=== PATIENT | male | born 1945 | race Caucasian/White ===

== ENCOUNTER 2021-11-23 06:09 | Outpatient (CLI) | payer MEDICARE | END 2021-11-23 06:10 | disposition critical access hospital (66) | LOC: EMS 06:09 | DX: R47.81 Slurred speech (principal); R29.810 Facial weakness; R53.1 Weakness | CPT/HCPCS: A0425; A0427 ==

== ENCOUNTER 2021-11-23 06:24 | Emergency (ER) | payer MEDICARE ==
[2021-11-23 06:51] LABS: BASOPHILS % (AUTO) 0.8 %; EOSINOPHILS # (AUTO) 0.1 10^3/uL (0.0-0.7); EOSINOPHILS % (AUTO) 2.2 %; HCT - HEMATOCRIT 39.9 % (42.0-52.0); LYMPHOCYTES # (AUTO) 1.1 10^3/uL (1.5-3.5); LYMPHOCYTES % (AUTO) 22.5 %; MEAN CORPUSCULAR HEMOGLOBIN 30.7 pg (27.0-31.0); MEAN CORPUSCULAR HGB CONC 32.6 g/dL (32.0-36.0); MEAN CORPUSCULAR VOLUME 94.1 fL (80.0-94.0); MEAN PLATELET VOLUME 9.6 fL (7.4-11.4); MONOCYTES # (AUTO) 0.5 10^3/uL (0.0-1.0); MONOCYTES % (AUTO) 9.6 %; NEUTROPHILS # (AUTO) 3.2 10^3/uL (1.5-6.6); NEUTROPHILS % (AUTO) 64.5 %; PLT - PLATELET COUNT 224 10^3/uL (130-450); RED BLOOD COUNT 4.24 10^6/uL (4.70-6.10); RED CELL DISTRIBUTION WIDTH 12.6 % (12.0-15.0)
[2021-11-23 07:04] LABS: ALBUMIN 3.8 g/dL (3.2-5.5); ALBUMIN/GLOBULIN RATIO 1.4 (1.0-2.2); BILIRUBIN,TOTAL 0.3 mg/dL (0.2-1.0); CALCIUM 8.6 mg/dL (8.5-10.3); CREATININE 0.7 mg/dL (0.6-1.2); POTASSIUM 3.5 mmol/L (3.5-5.0); TOTAL PROTEIN 6.5 g/dL (6.7-8.2)
[2021-11-23] MEDS ORDERED: ALTEPLASE IV STA ×3 (07:07→07:13)
[2021-11-23] MEDS ORDERED: WATER FOR INJECTION STERILE IV STA ×3 (07:07→07:13)
[2021-11-23 07:12] LABS: INR 1.2 (0.8-1.2); PT - PROTHROMBIN TIME 13.2 secs (9.9-12.6)
--- NOTE | 2021-11-23 07:13 | ED Physician Documentation ---
ED Addendum - Addendum Addendum: 11/23/21 07:10 Took over at shift change from Dr. Sevilla. At the time of shift change this gentleman who is on no meds was being evaluated by the telestroke neurologist. Time of onset 05 30. He appears to have a devastating right MCA stroke with left-sided deficits. May be some potentially Hyperacute right MCA sign on Noncon head CT. Telestroke neurologist recommended going ahead with tPA. is not currently at the bedside but is reportedly on the way. I called the home phone number and someone gave me her cell which was [phone]. I called this number and it went to [place]. I did leave a message for an urgent call back from her. Telestroke neurologist recommended starting tPA given the circumstance without formal consent given the devastating nature is nature of the stroke. Patient is slightly altered and does not seem to be consentable. tPA is being mixed by the pharmacist. He will go back for angiography study. 11/23/21 07:38 Given the above the decision was made by myself and the telestroke neurologist to go ahead and give the tPA bolus which was given at 7:26 AM. still not at bedside. Patient currently back at CT for angiography studies. 11/23/21 07:54 now at the bedside. We discussed the tPA and she was agreeable. He has returned from angiography. On exam at this point he is flaccid in the left upper extremity but can lift the left lower extremity. He states his name is "Sandeep." He states the month is October and the year is 2021. 11/23/21 07:56 Took call from telestroke neurologist and he confirms a right M1 MCA thrombus and is arranging for transfer to [facility]. 11/23/21 08:23 CTA head and neck demonstrates normal neck vasculature, right M1 MCA occlusion. 11/23/21 08:28 Took call from telestroke neurologist at this time. He is going to be accepted at [facility] for intervention, the accepting physician will call me back.
[2021-11-23 07:19] LABS: PARTIAL THROMBOPLASTIN TIME 18.2 secs (24.9-33.3)
[2021-11-23] MEDS ORDERED: IOPAMIDOL-300 50 ML VIAL ONE (07:26)
--- NOTE | 2021-11-23 07:35 | CT Report ---
PROCEDURE: Head W/O Stroke Protocol INDICATIONS: left facial droop, LUE/LLE flaccid weakness TECHNIQUE: Noncontrast 4.5 mm thick angled axial sections acquired from the foramen magnum to the vertex, with c oronal reformats. For radiation dose reduction, the following was used: automated exposure control, adjustment of mA and/or kV according to patient size. COMPARISON: FINDINGS: Image quality: Excellent. CSF spaces: Basal cisterns are patent. No extra-axial fluid collections. Ventricles are normal in size and shape. Brain: Increased density noted in the M1 segment right middle cerebral artery. No midline shift. No intracranial masses or hemorrhage. Huitron-white matter interface is normal. Skull and face: Calvarium and visualized facial bones are intact, without suspicious lesions. Sinuses: Visualized sinuses and mastoids are clear. IMPRESSION: Acute thrombus involving the M1 segment of the right middle cervical artery. No acute intracranial hemorrhage. This study fulfills neurological imaging criteria for inclusion or exclusion of acute stroke therapie s based on available published neurological imaging guidelines. Reviewed by: Leena Jules MD, PhD on 11/23/2021 7:34 AM PDT Approved by: Leena Jules MD, PhD on 11/23/2021 7:34 AM PDT Station ID: [id number]
--- NOTE | 2021-11-23 07:36 | XRAY Report ---
PROCEDURE: Chest 1 View X-Ray INDICATIONS: CVA TECHNIQUE: One view of the chest was acquired. COMPARISON: None FINDINGS: Surgical changes and devices: None. Lungs and pleura: No pleural effusions or pneumothorax. Lungs are clear. Mediastinum: Mediastinal contours appear normal. Heart size is normal. Bones and chest wall: No suspicious bony lesions. Overlying soft tissues appear unremarkable. IMPRESSION: No acute cardiopulmonary disease process. Reviewed by: Leena Jules MD, PhD on 11/23/2021 7:34 AM PDT Approved by: Leena Jules MD, PhD on 11/23/2021 7:34 AM PDT Station ID: [id number]
[2021-11-23] MEDS ORDERED: IOPAMIDOL-300 50 ML VIAL IVP ONE (07:47)
--- NOTE | 2021-11-23 07:59 | ED Physician Documentation ---
PD HPI FOCAL NEURO - Stated complaint Stated Complaint: POSS STROKE - Chief complaint Chief Complaint: Trauma Hd/Nk - History obtained from History obtained from: Patient, EMS - Additional information Additional information: Seen initially by Dr. Sevilla prior to shift change. Briefly this is a fairly healthy gentleman not anticoagulated who had abrupt onset of symptoms between 510 and 530 this morning with paralysis on the left. No recent surgeries. No headache. No anticoagulants. At the time of my initial evaluation he is being evaluated by telestroke neurology. Review of Systems Unable to obtain: AMS (Slow to answer questions) PD PAST MEDICAL HISTORY - Past Medical History Past Medical History: No GI: None, Other - Past Surgical History Past Surgical History: No General:  - Present Medications Home Medications: Ambulatory Orders Medication Instructions Recorded Confirmed No Known Home Medications 03/15/15 11/23/21 - Allergies Allergies/Adverse Reactions: Allergies Allergy/AdvReac Type Severity Reaction Status Date / Time No Known Drug Allergies Allergy Verified 11/23/21 07:45 - Social History Does the pt smoke?: No Smoking Status: Never smoker Does the pt drink ETOH?: No Does the pt have substance abuse?: No - Immunizations Immunizations are current?: Yes - POLST Patient has POLST: No PD ED PE NORMAL - Vitals Vital signs reviewed: Yes - General General: Other (He is alert and oriented to person and place but not time, preferring to keep his eyes closed.) - HEENT HEENT: PERRL, EOMI - Neck Neck: Supple, no meningeal sign, No bony TTP - Cardiac Cardiac: RRR, No murmur - Respiratory Respiratory: No respiratory distress, Clear bilaterally - Abdomen Abdomen: Non tender - Back Back: No CVA TTP, No spinal TTP - Derm Derm: Normal color, Warm and dry - Extremities Extremities: No edema, No calf tenderness / cord - Neuro Eye Opening: To Voice Motor: Obeys Commands Verbal: Confused GCS Score: 13 - Psych Psych: Normal mood, Normal affect NIHSS - Time Time: 07:50 - Level of Consciousness Level of consciousness: (1) Not alert, but arousable by minor stimulation to obey, or answer LOC Questions: (1) Answers one Q correctly LOC Commands: (0) Performs both correctly - Gaze Best Gaze: (0) Normal - Visual Visual: (2) Complete Hemianopia - Facial Palsy Facial Palsy: (2) Partial paralysis - Motor Arms (both separate) Motor Arm (right): (0) No drift Motor Arm (left): (4) No movement - Motor Legs (both separate) Motor Leg (right): (0) No drift Motor Leg (left): (1) Drift - Limb Ataxia Limb Ataxia: (0) Absent - Sensory Sensory: (1) Gwac-nr-gefdqepr loss - Best Language Best Language: (0) No aphasia - Dysarthria Dysarthria: (0) Normal - Extinction and Inattention (formally neg Extinction and inattention: (1) Visual,tactile,auditory,spatial, or personal inattention - Total Score/Results Total Score/Result: 13 Results - Vitals Vitals: Vital Signs - 24 hr 11/23/21 11/23/21 11/23/21 06:30 06:45 07:03 Temperature 36.4 C L 36.9 C Heart Rate 73 69 67 Respiratory 21 14 17 Rate Blood Pressure 113/71 114/73 118/70 O2 Saturation 98 98 99 11/23/21 11/23/21 07:30 07:45 Temperature Heart Rate 73 72 Respiratory 13 15 Rate Blood Pressure 107/68 106/65 O2 Saturation 100 98 Oxygen O2 Source Room air - EKG (time done) 0705 Rate: Rate (enter#) (68) Rhythm: NSR Loving: Normal Intervals: Normal ME QRS: Normal Ischemia: Normal ST segments Computer interpretation: Agree with computer - Labs Labs: Laboratory Tests 11/23/21 11/23/21 11/23/21 06:44 06:44 06:44 WBC 5.0 RBC 4.24 L Hgb 13.0 L Hct 39.9 L MCV 94.1 H MCH 30.7 MCHC 32.6 RDW 12.6 Plt Count 224 MPV 9.6 Neut # (Auto) 3.2 Lymph # (Auto) 1.1 L [place] # (Auto) 0.5 Eos # (Auto) 0.1 Baso # (Auto) 0.0 Absolute Nucleated RBC 0.00 Nucleated RBC % 0.0 PT 13.2 H INR 1.2 APTT 18.2 L Sodium 136 Potassium 3.5 Chloride 105 Carbon Dioxide 25 Anion Gap 6.0 BUN 21 H Creatinine 0.7 Estimated GFR (MDRD) 110 Glucose 117 H Calcium 8.6 Total Bilirubin 0.3 AST 22 ALT 17 Alkaline Phosphatase 74 Total Protein 6.5 L Albumin 3.8 Globulin 2.7 Albumin/Globulin Ratio 1.4 Lipase 31 PD MEDICAL DECISION MAKING - ED course ED course: See addendum for case details is available by phone [phone] - Critical Care Time(min): 45 Time Includes: Direct patient care, Review records, Reassess patient, Document care, Coordinate care, Medical consult, Family consult for tx dec Data interpretation: Labs, Pulse ox Procedures included in critical care time: Peripheral IV Procedures excluded from critical care time: EKG Departure - Departure Disposition: 02 Transfer Acute Care Hosp Clinical Impression: Acute right MCA stroke Condition: Critical Forms: Activity restrictions
--- NOTE | 2021-11-23 07:59 | CT Report ---
PROCEDURE: ANGIO HEAD W/WO INDICATIONS: CVA, likely R MCA CONTRAST: IV CONTRAST: Isovue 300 ml: 80 PO CONTRAST: *NO PO CONTRAST TECHNIQUE: Precontrast 4.5 mm thick angled axial sections acquired from the foramen magnum to the vertex. Afte r the administration of intravenous contrast, 1 mm thick sections acquired through the [place] of [place] is. Postcontrast 4.5 mm thick sections then re-acquired from the foramen magnum to the vertex. 3-di mensional umscamj-bxptdikyo-rfuzyfpmfj (MIP) and/or volume rendering reformats were acquired of the c entral intracranial vasculature. For radiation dose reduction, the following was used: automated ex posure control, adjustment of mA and/or kV according to patient size. COMPARISON: CT head 11/23/2021 FINDINGS: Image quality: Severely degraded by patient motion artifact. Anterior circulation: Intracranial internal carotid arteries are grossly normal in size and flow. T he flow within the paired anterior cerebral arteries is grossly normal and symmetric. Absence of flow noted in the M1 segment of the right middle cerebral artery compatible presence of thrombus. Flow wi thin the left middle cerebral artery is grossly normal. The anterior communicating artery is seen. N o definite aneurysms are seen. Posterior circulation: Visualized portions of the vertebral arteries demonstrate grossly normal carmel zayra, and join to form a normal grossly appearing basilar artery. Flow within the posterior cerebral arteries is normal and symmetric. No definite aneurysms are seen. Dural sinuses demonstrate normal postcontrast enhancement. CSF spaces: Ventricles are normal in size and shape. Basal cisterns are patent. No extra-axial flu id collections. Brain: No midline shift. No intracranial bleeds or masses. Huitron-white matter interface appears int act. Skull and face: Calvarium and facial bones appear intact, without suspicious lesions. Sinuses: Visualized sinuses and mastoids are clear. IMPRESSION: 1. Image quality severely degraded by patient motion artifact. 2. Thrombus in the M1 segment of the right middle cerebral artery. Reviewed by: Leena Jules MD, PhD on 11/23/2021 7:58 AM PDT Approved by: Leena Jules MD, PhD on 11/23/2021 7:58 AM PDT Station ID: [id number]
--- NOTE | 2021-11-23 08:03 | CT Report ---
PROCEDURE: ANGIO NECK W INDICATIONS: CVA, likely R MCA CONTRAST: IV CONTRAST: Isovue 300 ml: 80 PO CONTRAST: *NO PO CONTRAST TECHNIQUE: After the administration of intravenous contrast, 1.5 mm axial sections acquired from the aortic arch to the [place] of [place]. Coronal 3-D maximum intensity projection (MIP) and/or volume rendering ref ormats were then performed. For radiation dose reduction, the following was used: automated exposur e control, adjustment of mA and/or kV according to patient size. COMPARISON: None. FINDINGS: Image quality: Severely degraded by patient motion artifact resulting in suboptimal visualization of the distal cervical segments of the carotid arteries and vertebral arteries as well as the intracrani al cerebral vasculature.. Carotid system: The great vessels demonstrate a conventional anatomy as they arise from the aortic a rch. The origins of the common carotid arteries appear patent. The common carotid arteries demonstr ate normal calibers and courses. The bifurcation regions appear normal bilaterally. The internal ca rotid arteries demonstrate normal caliber and course. Posterior circulation: The origins of the vertebral arteries appear patent. The more superior porti ons of the vertebral arteries demonstrate normal course and caliber. They join to form a normal appe aring basilar artery. Soft tissues: Visualized neck soft tissues demonstrate no suspicious abnormalities. The thyroid is normal in size and there are no incidental findings. Bones: No suspicious bony lesions. Spine degenerative disc disease and facet arthropathy are noted. Visualized cervical spine appears normally aligned. IMPRESSION: 1. Image quality degraded by patient motion artifact. 2. No large vessel occlusion, vascular stenosis or vascular dissection identified in the well-visuali zed portions of the neck vasculature. The estimate of stenosis included in the report of the imaging study was calculated using the NASCET method Reviewed by: Leena Jules MD, PhD on 11/23/2021 8:01 AM PDT Approved by: Leena Jules MD, PhD on 11/23/2021 8:01 AM PDT Station ID: [id number]
[2021-11-23] MEDS ORDERED: SODIUM CHLORIDE 0.9% 1,000 ML IV STA (08:28)
[2021-11-23 09:16] VITALS: BP 112/59
== END 2021-11-23 09:14 | disposition short-term general hospital (02) ==
LOC: EDUNIT# → ED 06:24
DX: I63.511 Cerebral infarction due to unspecified occlusion or stenosis of right middle cerebral artery (principal); R29.713 NIHSS score 13; Z20.822 Contact with and (suspected) exposure to COVID-19
CPT/HCPCS: 36415; 37195; 70450; 70496; 70498; 71045; 80053; 83690; 85025; 85610; 85730; 87635; 93005; 99285; 99291; J2997; Q9967

== ENCOUNTER 2021-12-07 14:58 | Outpatient (CLI) | payer MEDICARE ==
--- NOTE | 2021-12-07 16:26 | CT Report ---
PROCEDURE: HEAD WO INDICATIONS: CVA TECHNIQUE: Noncontrast 4.5 mm thick angled axial sections acquired from the foramen magnum to the vertex. For r adiation dose reduction, the following was used: automated exposure control, adjustment of mA and/or kV according to patient size. COMPARISON: CT head 11/23/2021. CT angiogram head and neck 11/23/2021. FINDINGS: Image quality: Excellent. CSF spaces: Basal cisterns are patent. No extra-axial fluid collections. Ventricles are normal in size and shape. Brain: Confluent hypodensity involving the right deep huitron matter, right frontal lobe, right middle lobe and right temporal lobe compatible with subacute infarct in a right middle cerebral artery distribution. No midline shift. No intracranial masses or hemorrhage. Huitron-white matter interface is normal. Skull and face: Calvarium and visualized facial bones are intact, without suspicious lesions. Sinuses: Small mucous retention cysts noted in the maxillary sinuses. The mastoids are clear. IMPRESSION: Subacute right MCA distribution infarct. No acute intracranial hemorrhage. Reviewed by: Leena Jules MD, PhD on 12/07/2021 4:24 PM PDT Approved by: Leena Jules MD, PhD on 12/07/2021 4:24 PM PDT Station ID: [id number]
== END 2021-12-07 14:59 | disposition home or self-care (01) ==
LOC: DI 14:58
PROVIDERS: ATTEND Student in an Organized Health Care Education/Training Program
DX: I63.411 Cerebral infarction due to embolism of right middle cerebral artery (principal)

== ENCOUNTER 2022-03-29 14:34 | Outpatient (CLI) | payer MEDICARE | END 2022-03-29 14:35 | disposition home or self-care (01) | LOC: SC 14:34 | PROVIDERS: ATTEND Nurse Practitioner Family | DX: G47.33 Obstructive sleep apnea (adult) (pediatric) (principal) | CPT/HCPCS: G0399 ×2; 95806 ==

== ENCOUNTER 2022-04-23 12:22 | Outpatient (CLI) | payer MEDICARE ==
[2022-04-23 12:02] VITALS: BP 88/53
--- NOTE | 2022-04-23 12:02 | SLEEP CARE CONSULTATION ---
Information from patient questionnaire entered by Mindy Rincon. I have reviewed and concur with the information entered by Mindy Rincon. This document represents the service I personally performed and the decisions made by , Meredith Epperson ARNP. History of Present Illness Service Date and Time: 04/23/2022 1140 Accompanied by: Spouse Initial [place] Sleepiness Scale score: 4 (01/31/2022) Current [place] Sleepiness Scale score: 5 (04/23/2022) Additional HPI information: WHITNEY ALLEN returns via video telehealth visit for follow up with spouse and results of the recently performed home sleep study. Patient sleep study did show positive sleep disordered breathing but due to extensive pulse oximetry signal loss is a nondiagnostic study. It is recommended that patient repeat study in the sleep lab for better quality results. Sleep Study - Results Type of Sleep Study: Home sleep study (COMPLETED 03-30-2022) Prior sleep studies: No Polysomnography/Home Sleep Study results: Physician Impression: The quality of the study is poor due to extensive loss of pulse oximetry signal. The length of the study is adequate (> 240 minutes). Please also see the tabulated and graphic data. 1. Obstructive Sleep Apnea-Hypopnea (ICD-10 G47.33), mild, with an AHI of 10.7/hr and ban SaO2 of 91%. During the study, the patient had 20 apneas (20 obstructive, 0 central, 0 mixed) and 3 hypopneas. The longest episode lasted 112.5 seconds. The respiratory events occurred almost exclusively during supine sleep (supine AHI was 16.7 and non-supine, 2.22). Recommendation: Due to the extensive data loss, this home sleep apnea test (HSAT) is non- diagnostic. An inlaboratory polysomnography should be performed to further evaluate sleep-disordered breathing. Allergies and Home Medications Drug allergies reviewed: Yes (NKDA) Home medication list reviewed: Yes (Imaquimod) Review of Systems Review of systems same as previous: No (Basal cell carcinoma) Physical Exam Vital signs obtained and entered by: VIA PHONE Blood Pressure: 88/53 (PER PT ) Height: 5 ft 9 in Weight: 163 lb (pt reported) Body Mass Index: 24.0 BMI Classification: Normal Impression and Plan 1. Suspected Obstructive Sleep Apnea-Hypopnea Syndrome, as suggested by a history of loud and irregular snoring, unrefreshed sleep, and history of strokes, DVT and more recently diagnosed with Atrial fibrillation. Patient had significant loss of pulse oximetry signal with his HST resulting in poor quality sleep study. He states they always have issues getting pulse oximetry to work on his fingers. He does not want to try an in lab sleep study and would prefer trying the HST again. He is also wanting to wait until his cardioversion by his form coverer of his Afib before he does another study. I advised that we try to get this done when able to confirm the diagnosis and to assess severity. I obtained agreement to proceed. The pathophysiology of obstructive sleep apnea-hypopnea syndrome was discussed with the patient and health risks of cardiovascular and cerebrovascular disease if not treated. Risks of drowsy driving discussed in detail and patient advised to avoid long distance driving and to date puller at the first sign of drowsiness. Patient agreed to plan. * Schedule polysomnography * Avoid alcohol, sedative and muscle relaxant around bedtime. * Review instructions provided by trained office staff on how to prepare for the sleep study. * Return for follow-up after sleep study completed. Visit Type: Telehealth Video Video Type: Doximity Patient Location: Home Other Participants: Spouse/Significant Other Location of Provider: Office Patient agrees and consents to this telehealth visit type: Yes Patient agrees to have their insurance billed: Yes Time Spent with Patient (minutes): 22 Provider Statement: I spent 100% of the Telehealth Video Call with the patient with greater than 50% spent counseling the patient and coordination of care.
== END 2022-04-23 12:23 | disposition home or self-care (01) ==
LOC: SC 12:22
PROVIDERS: ATTEND Nurse Practitioner Family
DX: G47.8 Other sleep disorders (principal); R06.83 Snoring

== ENCOUNTER 2022-05-17 13:17 | Outpatient (CLI) | payer MEDICARE | END 2022-05-17 13:18 | disposition home or self-care (01) | LOC: SC 13:17 | PROVIDERS: ATTEND Nurse Practitioner Family | DX: Z53.9 Procedure and treatment not carried out, unspecified reason (principal) ==

== ENCOUNTER 2022-05-20 08:30 | Outpatient (CLI) | payer MEDICARE | END 2022-05-20 08:31 | disposition home or self-care (01) | LOC: SC 08:30 | PROVIDERS: ATTEND Nurse Practitioner Family | DX: R09.02 Hypoxemia (principal); R00.0 Tachycardia, unspecified | CPT/HCPCS: G0399 ×2; 95806 ==

== ENCOUNTER 2022-05-23 13:31 | Outpatient (CLI) | payer MEDICARE ==
--- NOTE | 2022-05-23 13:23 | SLEEP CARE CONSULTATION ---
Information from patient questionnaire entered by Shandra Baird MA. I have reviewed and concur with the information entered by Shandra Baird MA. This document represents the service I personally performed and the decisions made by , Meredith Epperson ARNP. History of Present Illness Service Date and Time: 05/23/2022 1300 Accompanied by: Spouse Initial [place] Sleepiness Scale score: 4 (01/31/2022) Current [place] Sleepiness Scale score: 3 Additional HPI information: WHITNEY ALLEN returns via video telehealth visit with spouse for follow up and results of the recently performed home sleep study. The patient was informed of the following findings: No significant sleep disordered breathing with an average AHI of 0.3 and ban oxygen saturation of 82%. The length of the study was [id number]. Tachycardia with maximum recorded heart rate of 152 BPM and wide heart rate fluctuations. Sleep Study - Results Type of Sleep Study: Home sleep study (COMPLETED 03-30-2022) Prior sleep studies: No Polysomnography/Home Sleep Study results: Physician Impression: The quality of the study is good. The length of the study is [id number] (< 240 minutes). Please also see the tabulated and graphic data. 1. No significant sleep disordered breathing, with an AHI of 0.3/hr and ban SaO2 of 82%. During the study, the patient had 0 apneas (0 obstructive, 0 central, 0 mixed) and 1 hypopnea. The longest episode lasted 51.0 seconds. The patient slept adequately in supine position (supine AHI was 0.0 and non-supine, 0.44). 2. Hypoxemia (ICD-10 R09.02), minimal, with the lowest oxygen saturation of 82 % and 0.8 minutes with SaO2 under 90%. Baseline oxygen saturation was normal (Average oxygen saturation was 96%). 3. Tachycardia (ICD R00.0), with maximum heart rate of 152 beats per minute and wide heart rate fluctuations. Recommend further evaluation. Allergies and Home Medications Drug allergies reviewed: Yes (NKDA) Home medication list reviewed: Yes (no changes) Review of Systems Review of systems same as previous: No (cardioversion for Afib) Physical Exam Vital signs obtained and entered by: MODESTO Height: 5 ft 9 in Weight: 160 lb (pt reported) Body Mass Index: 23.6 BMI Classification: Normal Impression and Plan 1. Tachycardia, with maximum heart rate of 152 beats per minute and wide heart rate fluctuations. Patient has a history of atrial fibrillation. It is recommended that he see his managed care specialist for further evaluation. 2. Suspected Obstructive Sleep Apnea-Hypopnea Syndrome. He has had 2 HSTs with various problems and I talked at length about getting a more accurate measurement by having him do the study in the sleep lab. I recommend proceeding to polysomnography to confirm the diagnosis and to assess severity. Patient would like to discuss it with his and will call back with their decision on whether he will come in for PSG in the sleep lab. * Patient to call with decision on repeat PSG in sleep lab * Patient to follow up with his managed care specialist on elevated heart rate with wide heart rate fluctuations Follow up with: Special Weapons And Tactics Officer (for tachycardia/wide heart rate fluctuations) Visit Type: Telehealth Video Video Type: Doximity Patient Location: Home Other Participants: Spouse/Significant Other Location of Provider: Office Patient agrees and consents to this telehealth visit type: Yes Patient agrees to have their insurance billed: Yes Time Spent with Patient (minutes): 20 Provider Statement: I spent 100% of the Telehealth Video Call with the patient with greater than 50% spent counseling the patient and coordination of care.
== END 2022-05-23 13:32 | disposition home or self-care (01) ==
LOC: SC 13:31
PROVIDERS: ATTEND Nurse Practitioner Family
DX: R00.0 Tachycardia, unspecified (principal)

== ENCOUNTER 2022-07-08 19:26 | Outpatient (CLI) | payer MEDICARE | END 2022-07-08 19:27 | disposition home or self-care (01) | LOC: SC 19:26 | PROVIDERS: ATTEND Nurse Practitioner Family | DX: G47.33 Obstructive sleep apnea (adult) (pediatric) (principal); G47.61 Periodic limb movement disorder; I48.91 Unspecified atrial fibrillation; G47.52 REM sleep behavior disorder | CPT/HCPCS: 95810 ==

== ENCOUNTER 2022-07-11 08:40 | Outpatient (CLI) | payer MEDICARE ==
[2022-07-11 09:03] VITALS: BP 95/65
--- NOTE | 2022-07-11 09:03 | SLEEP CARE CONSULTATION ---
Information from patient questionnaire entered by Linda Rincon. I have reviewed and concur with the information entered by Linda Rincon. This document represents the service I personally performed and the decisions made by , Meredith Epperson ARNP. History of Present Illness Service Date and Time: 07/11/2022 0840 Accompanied by: Spouse Initial [place] Sleepiness Scale score: 4 (01/31/2022) Current [place] Sleepiness Scale score: 3 (07/11/22) Additional HPI information: WHITNEY ALLEN returns via video telehealth visit with spouse for follow up and results of the recently performed polysomnography. I explained the pathophysiology behind obstructive sleep apnea. We then spent quite a bit of time discussing different treatment options. For mild obstructive sleep apnea, surgery and oral appliance are alternatives to nasal CPAP therapy but in moderate or severe cases, nasal CPAP is the most effective and reliable treatment. Because apnea is primarily in supine position, then positional management therapy could be effective. Methods discussed such as positioning with pillows, using a T-shirt with tennis balls in the back, or commercially available positional products to prevent supine sleep. I reviewed the impact of weight changes on sleep apnea and strongly recommended losing weight. Patient was cautioned about risks of drowsy driving until sleepiness symptoms resolve. Patient denies drowsy driving. Sleep Study - Results Type of Sleep Study: Polysomnography (COMPLETED 07/08/22) Prior sleep studies: No Allergies and Home Medications Drug allergies reviewed: Yes (NKDA) Home medication list reviewed: Yes (no changes) Review of Systems Review of systems same as previous: Yes (no changes) Physical Exam Vital signs obtained and entered by: VIA PHONE LINDA Donald MA Blood Pressure: 95/65 (PER PT) Height: 5 ft 8 in (PER PT) Weight: 165 lb (PER PT) Body Mass Index: 25.0 BMI Classification: Overweight Impression and Plan 1. Obstructive Sleep Apnea-Hypopnea Syndrome, mild, with lowest oxygen saturation of 87%. Obviously this is the cause of the patients symptoms of unrefreshed sleep, and excessive daytime sleepiness. Positive pressure therapy could benefit cerebrovascular disease (stroke) and atrial fibrillation. The patient chose an oral appliance to treat their apnea. A follow up will be made to see if appliance has reduced symptoms. If so, another polysomnography will be ordered with use of the oral appliance to check efficacy in reducing apnea. Until patient is able to use the oral appliance, positional therapy is advised to avoid supine sleep with pillow positioning or one of the commercial products because apnea is more severe supine. 2. Periodic limb movement, mild, that did not fragment patients sleep. Periodic limb movement of sleep (PLMS) is characterized by episodes of repetitive limb movements that occur during sleep and usually involve the lower limbs. The etiology is unknown. Caffeine can aggravate PLMS and should be avoided. Sleep hygiene methods can also improve sleep as well as lifestyle changes such as regular exercise. Patient was advised that no treatment is needed at this time. If symptoms increase, then further evaluation is indicated. 3. Atrial fibrillation with controlled heart rate. Patient with a history of atrial fibrillation and recent cardioversion. 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 4. REM parasomnia. Patient was noted to move arm during REM sleep. I discussed with patient that further evaluation is as needed if becomes problem. * Oral appliance * Avoid supine sleep until using oral appliance. * The patient is again cautioned about driving until sleepiness completely resolves. * Return one month after oral appliance obtained. I will assess response to therapy at that time. Counseling Topics: Sleeping position Visit Type: Telehealth Video Video Type: Doximity Patient Location: Home Other Participants: Spouse/Significant Other Location of Provider: Office Patient agrees and consents to this telehealth visit type: Yes Patient agrees to have their insurance billed: Yes Time Spent with Patient (minutes): 22 Provider Statement: I spent 100% of the Telehealth Video Call with the patient with greater than 50% spent counseling the patient and coordination of care.
== END 2022-07-11 08:41 | disposition home or self-care (01) ==
LOC: SC 08:40
PROVIDERS: ATTEND Nurse Practitioner Family
DX: G47.33 Obstructive sleep apnea (adult) (pediatric) (principal); G47.61 Periodic limb movement disorder; I48.91 Unspecified atrial fibrillation; G47.52 REM sleep behavior disorder

== ENCOUNTER 2023-10-28 15:03 | Outpatient (CLI) | payer MEDICARE ==
--- NOTE | 2023-10-28 14:56 | SLEEP CARE CONSULTATION ---
Information from patient questionnaire entered by Mindy Rincon. I have reviewed and concur with the information entered by Mindy Rincon. This document represents the service I personally performed and the decisions made by me, Juvencio Epperson ARNP. History of Present Illness Service Date and Time: 10/28/2023 1440 Previous diagnosis: Mild, Obstructive Sleep Apnea-Hypopnea Syndrome AHI: 5.2 (07/08/22) Reason for follow up: six month (F/U ORAL APPLIANCE) Accompanied by: Spouse (Deedee) Equipment type: Dental Appliance Prior sleep studies: No Type of Sleep Study: Polysomnography (COMPLETED 07/08/22) HPI additional information: WHITNEY ALLEN was diagnosed to have mild, AHI 5.2, obstructive sleep apnea-hypopnea syndrome and returns with spouse via video appointment today for oral appliance therapy six month follow-up. Sleep Study - Results Type of Sleep Study: Polysomnography (COMPLETED 07/08/22) Prior sleep studies: No Subjective On therapy, patient: reports: being more awake and alert during the day, more rested overall. denies: drowsiness while driving Initial [place] Sleepiness Scale score: 4 (01/31/2022) Current [place] Sleepiness Scale score: 2 Allergies and Home Medications Known drug allergies: No Drug allergies reviewed: Yes Home medication list reviewed: Yes (no changes) Allergy and home medication list: Allergies No Known Drug Allergies Allergy (Verified 10/23/23 11:23) Review of Systems Review of systems same as previous: Yes (no changes) Physical Exam Vital signs obtained and entered by: JUVENCIO ROMANO Blood Pressure: 98/67 (per pt) Height: 5 ft 8 in (PER PT) Weight: 164 lb (Per Pt) Body Mass Index: 24.9 BMI Classification: Normal Impression and Plan 1. Obstructive Sleep Apnea-Hypopnea Syndrome, mild. He returns to office for 6 month followup with oral appliance therapy. He has had his oral appliance since the end of last summer but his teeth were too sore to continue to use it consistently. He went back to a new dentist last week and an adjustment was made to the device. He now feels like it is comfortable and has been able to use it for 3 nights without mouth/teeth pain. I would like to check effectiveness and will order a follow up PSG with oral appliance in place. We will followup with him after the sleep study. Patient's apnea severity and rationale for treatment to reduce apnea, improve sleep quality and reduce cardiovascular and cerebrovascular events was reviewed. I also reviewed the benefit of consistent device use for hypertension, arrhythmia. * Continue oral appliance * PSG with oral appliance in place * Call this office if any problems * Return for follow up after sleep study, or sooner if concerns arise Follow up with Sleep Care in: other (after PSG with oral appliance in place) Visit Type: Telehealth Video Video Type: Doximbon Patient Location: Home Other Participants: Spouse/Significant Other Location of Provider: Office Patient agrees and consents to this telehealth visit type: Yes Patient agrees to have their insurance billed: Yes Time Spent with Patient (minutes): 17 Provider Statement: I spent 100% of the Telehealth Video Call with the patient with greater than 50% spent counseling the patient and coordination of care.
[2023-10-28 14:59] VITALS: BP 98/67
== END 2023-10-28 15:04 | disposition home or self-care (01) ==
LOC: SC 15:03
PROVIDERS: ATTEND Nurse Practitioner Family
DX: G47.33 Obstructive sleep apnea (adult) (pediatric) (principal); I10 Essential (primary) hypertension; I49.9 Cardiac arrhythmia, unspecified